=== PATIENT | female | born 1990 | race Caucasian/White ===

== ENCOUNTER → 2019-11-09 | Outpatient (CLI) | payer MEDICAID, SELFPAY ==
[2019-02-23 12:12] VITALS: BMI 27.1
== END | disposition home or self-care (01) ==
PROVIDERS: PCP Family Medicine; Visit Provider Family Medicine
DX: Z11.59 Encounter for screening for other viral diseases (principal)
CPT/HCPCS: 87635; U0003

== ENCOUNTER → 2019-11-13 | Outpatient (CLI) | payer MEDICAID, SELFPAY ==
[2019-02-23 12:12] VITALS: BMI 27.1
== END | disposition home or self-care (01) ==
LOC: LABSPEC 12:59
PROVIDERS: PCP Family Medicine; Visit Provider Family Medicine
DX: Z11.59 Encounter for screening for other viral diseases (principal)
CPT/HCPCS: 87635; U0003